=== PATIENT | female | born 1990 | race Caucasian/White ===

== ENCOUNTER 2025-01-29 06:00 | Inpatient (IN) | payer OTHER, SELFPAY ==
[2025-01-29] VITALS (26 sets, daily range): BP systolic 109–143; BP diastolic 63–82; PULSE 77–99; RESP 16–20; TEMP 36.3–36.9; O2SAT 94–98; BMI 26.0
--- NOTE | 2025-01-29 06:34 | PM.OBHPLI ---
OB - H&P: HPI Labor/Induction History of Present Illness Time Seen by Provider: 06:20 Date Seen: 01/29/25 Chief Complaint: The patient is a 34 year old 2 para 1 at 40 6/7 weeks gestation by LMP c/w 1st trimester US, who presents for induction due to postdates Chief complaint: IOL : 2 Para: 1 Date of last menstrual period: 04/18/24 Estimated date of delivery: 01/23/25 Gestational age based on last menstrual period: 40 Indications for induction: other (postdates) Narrative: Marielena Oconnor is a 34 year old 2 para 1 at 40 6/7 weeks gestation by LMP c/w 1st trimester US, who presents for induction due to postdates. She reports some occasional cramping the last couple days, no regular contractions. No LOF. No headaches, no vision changes. no reccent illness. +FM. No concerns. overall without complications except vaginal bleeding 07/11/24, given rhogam. History of Present Dating criteria: based on LMP care: good care (initial care through [facility], transfered [facility] at 31wks) Ultrasounds: other Abnormal ultrasound findings: US 06/25/24 Embryo 9w1d. cardiac activity. Early placcenta appears low lying/previa. Subchorionic bleed seen posterior/right gestational sac. 08/28/24 18 6/7 wks. Good FHT. Cervical length mildly shortened 2.6cm. adjaccent internal os is flat heterogeneous hypoechoic region. could be small hemorrhage vs small area uterine parenchyma. ALEXANDER 14.5. No previa. 09/11/24 normal anatomy EFW 57% Labs Blood type: AB (-) negative Rubella: immune RPR/VDLR: nonreactive GBS status: negative HBsAG: negative Meds Home Medications and Allergies Home Medications ?Medication ?Instructions ?Recorded ?Confirmed ?Type fluoxetine 20 mg capsule mg PO DAILY 03/16/24 03/16/24 History Held on 01/29/25. Instructions: Order Change ferrous sulfate 325 mg (65 mg 325 mg PO Q48H 01/29/25 01/29/25 History iron) tablet (Feosol) fluoxetine 10 mg capsule 10 mg PO DAILY 01/29/25 01/29/25 History vit no.95-ferrous 1 tab PO DAILY 01/29/25 01/29/25 History fumarate 28 mg-folic acid 800 mcg tablet () Allergies Allergy/AdvReac Type Severity Reaction Status Date / Time No Known Drug Allergies Allergy Verified 03/16/24 09:53 OB - H&P: Exam Physical Exam: Vital signs: Temp Pulse Resp BP Pulse Ox 97.9 F 91 16 118/76 97 01/29/25 06:11 01/29/25 06:11 01/29/25 06:11 01/29/25 06:11 01/29/25 06:12 Constitutional: Constitutional: no acute distress and cooperative Routine HEENT Exam: Head: Present normal inspection Eye: Present normal appearance ENT: Present mucous membranes moist Routine Respiratory Exam: Respiratory: Present CTA bilaterally Routine Cardiovascular Exam: Cardiovascular: RRR Routine Abdominal Exam: Comments: gravid consistent with dates Detailed Labor and Delivery Exam: Patient Gravid: yes Comments: 270/-2 on 01/27/25 today not feeling contractions. monitor with contractions q2-8 Fetus (Single): Heart Rate Baseline: 150 Monitor Accelerations: Present Monitor Decelerations: Variable Skilled Nursing Variability: Moderate (6-25) Detailed Lower Extremity Exam: Comments: no ankle edema Routine Psychiatric Exam: Present normal affect and good judgment OB - Problem Based A/P Additional Plan (1) Term : Status: Acute Plan discussed induction due to postdates in clinic. risks vs benefits and variability reviewed. all ?'s answered. Plan again reviewed today. Pt and without questions. plan start pitocin per protocol. GBS negative. Delivery/Labor/Induction Plan Plan: induction Induction method: per pitocin protocol
[2025-01-29 07:43] LABS: Hematocrit* 41.1 % (33.0-51.0); Hemoglobin* 13.9 gm/dL (12.0-16.0); Immature Granulocytes Pct Auto 0.5 %; Lymphocytes Absolute Auto 2.30 K/uL (0.90-2.90); Mean Corpuscular HGB Conc 34 gm/dL (32-36); Mean Corpuscular Hemoglobin 31 pg (26-34); Mean Corpuscular Volume 92 fL (80-100); RDW Coefficient of Variation % 12.8 % (11.5-15.5); Red Blood Count* 4.47 m/uL (4.00-5.20); White Blood Count* 11.30 K/uL (4.50-11.00)
[2025-01-29 07:53] LABS: Immature Granulocytes Abs Auto 0.10 K/uL (0.00-0.30)
[2025-01-29 07:54] LABS: Slide Review Reflex No
[2025-01-29] MEDS: OXYTOCIN 30 unit/500 ML in NS 30 UNIT/500 ML BAG IVPB (07:55)
[2025-01-29] MEDS: LACTATED RINGERS 1000 ML 1,000 ML 125 ML IV (07:55)
--- NOTE | 2025-01-29 13:23 | P.OBPN_ITS ---
Subjective Time Seen by Provider: 01:20 Date Seen: 01/29/25 Narrative: pt on pitocin and reports contractions seem to be increasing in intensity, rates 4/10, still speaking through them. Notes she felt little increased wetness but not like when water broke last . had little bloody mucous with voiding just now. Objective Vital Signs: Last Vital Signs Temp 97.9 F 01/29/25 12:00 Pulse 82 01/29/25 12:45 Resp 16 01/29/25 06:11 BP 118/75 01/29/25 12:45 Pulse Ox 94 01/29/25 11:00 Pelvic Exam Dilation (cm): 3.5 Effacement (%): 75 Station: -1 Comments: AROM with clear fluid Contractions Monitor mode: External Contraction Frequency: q2min Contraction pattern: Regular Assessment Assessment: induction ongoing Station: -1 Amniotic Membrane Status: AROM Heart Rate Baseline: 140 Deicer Element Winder Machine Variability: Moderate (6-25) Monitor Accelerations: Present Monitor Decelerations: Variable Plan Plan: Induction for postdates ongoing -on pitocin -discussed AROM and pt consented and AROM performed without difficulty. -all ?'s answered
[2025-01-29] MEDS: LIDOCAINE 1 % PF 30 ML INJECTION (15:18)
[2025-01-29] MEDS: miSOPROStoL 800 MCG/4 TABLET PR (15:30)
[2025-01-29] MEDS: LOPERAMIDE HCL 2 MG CAPSULE 4 MG PO (15:36)
[2025-01-29] MEDS: CARBOPROST TROMETHAMINE 250 MCG/ML INJ IM (15:36)
[2025-01-29] MEDS: TRANEXAMIC ACID 100 MG/ML INJ 1000 MG IV (15:42)
--- NOTE | 2025-01-29 15:56 | W.PM.OBVAGDE ---
OB Procedure Vag Delivery Mother Details Mother Details: The patient is a 34 year-old, 2, Para 1, admitted on 01/29/25 at Days gestation. Admission Date: 01/29/25 Additional Details Amniotic Membrane Status: AROM (clear fluid) Amniotic Membrane Rupture Date: 01/29/25 Amniotic Membrane Rupture Time: 13:16 Amniotic Membrane Fluid Description: Clear Analgesia/Anesthesia Type: None (topical lidocaine to perineum and vulva just before and post for uterine investigation due to bleeding) Waterbirth: No Pitcoin: Yes Intrapartal Events: Labor Induction Induction Method: per pitocin protocol and AROM Labor Onset: 14:15 Complete: 15:08 Pushin:06 (spontaneous pushing) Heart: heart tones during second stage were cat 2. Stage 2 was very short and was imminent. Delivery Details Delivery Date: 01/29/25 Delivery Time: 15:15 Route of delivery: Infant Gender: Male Infant Viability: Alive; Heart Rate Present Position at Delivery: OA Delivery Details: Patient was admitted for?IOL for post dates?and progressed quickly after 5 cm. she had planned an epidural, but did not have time for placement before baby was born. AROM noted at?1316?with clear fluid. Patient was complete at?1508?and?had began spontaneously pushing?at? 1506. of?a viable?male at?1515?in OA. Vertex?delivered?OA. One nuchal cord that was loose and easily slipped.?With first push after the head was delivered anterior shoulder did not release. Cesar was ordered and baby did deliver with the next push.?Infant?passed to?mothers?abdomen and was stimulated and suctioned with the bulb. Tone began to improved but no cry stimulated yet at 30 sec so cord was clamped and cut and baby was taken to the warmer. Loud cry heard very shortly after being taken from his mother.. APGARS were?8?at one minute and?8?at five?minutes?respectively. Placent noted to be irregularly shaped with off center cord insertion. cotyledons did lay approximately together, but intactness was not obvious. 3 vessel?cord delivered spontaneously at?1521. Fundus firm. 1st midline introitus?identified?and repaired in typical fashion. Amidst the repair, intermittent gushing of blood noted. Vaginal and cervical sweeps were repeatedly expelling clots. Cytotec given rectally. with continued issues, Dr Esqueda stepped in to do a uterine sweep. Please see her note. QBL?[id number]?cc. Mother and baby stable; mother plans to breastfeed. Infant weight pending.? 1 Minute Interval Total Score: 8 5 Minute Interval Total Score: 8 Additional Details Shoulder Dystocia: No Placenta Delivery Time: 15:21 Placental Delivery Description: Spontaneous Delivery repair: Vicryl Procedure Done: Global Laceration: Perineal - 1st Degree Episiotomy Description: None Blood Loss Measurement Type: QBL Bakri Used: No Sponge/Need Count Correct: Yes Cord Vessel Description: 3 Vessels, Loose and Reduced Event Summary Status: Mother and infant were stable after delivery. Disposition: floor
[2025-01-29 16:04] LABS: Hematocrit* 40.0 % (33.0-51.0); Hemoglobin* 13.5 gm/dL (12.0-16.0); Immature Granulocytes Abs Auto 0.10 K/uL (0.00-0.30); Immature Granulocytes Pct Auto 0.6 %; Mean Corpuscular HGB Conc 34 gm/dL (32-36); Mean Corpuscular Hemoglobin 31 pg (26-34); Mean Corpuscular Volume 92 fL (80-100); RDW Coefficient of Variation % 12.5 % (11.5-15.5); Red Blood Count* 4.35 m/uL (4.00-5.20); White Blood Count* 16.48 K/uL (4.50-11.00)
[2025-01-29 16:06] LABS: Lymphocytes Absolute Auto 2.00 K/uL (0.90-2.90); Slide Review Reflex No
--- NOTE | 2025-01-29 16:32 | PM.EN ---
Chart Event Note Time Seen by Provider: 15:16 Date Seen: 01/29/25 Chart Event Note: I was in clinic and notified at 2:59pm by RN that pt was 5cm and suddenly very uncomfortable. She requested epidural. Then at 3:02pm RN messaged that she was 8cm. Pitocin was turned off and anesthesia was on their way for epidural. I rushed out of clinic at 3:05pm and arrived around 3:16 and baby had delivered and was on mom's chest. User Experience Architect Jorge was present at bedside managing placenta. See her note for details. Per report, delayed cord clamping was performed for 30sec and when I arrived staff was assessing infant and taking him to warmer as he did not have spontaneous cry. Jorge continued to manage pt and I went to warmer with . see note for details. After was determined to be stable and improving, I returned to pts bedside where Joreg was repairing the 1st degree tear. Jorge noticed some persistent oozing and then clots. see her note for details. Pitocin had been started immediately after delivery and was already running. Fundal massage had been performed and uterus felt firm per RN. There were persistent clots with massage. I then placed cytotec 800mcg rectally. Pt continued to have bleeding and clots with fundal massage and Hemabate was given. Methergine was not given as mom's most recent BP had been 142/81. RN was instructed to start a 2nd IV. TXA was ordered. RN notified Dr Noriega to stay on unit in case needed. I put on sterile gloves and discussed with patient that I was going to do bimanual uterine clot evacuation to evaluate for retained placenta/clots. This was performed and 2 small placenta pieces were removed. I then repeated bimanual clot evacuation 2 more times for total of 3 times. The first two had small pieces of placenta removed, the last one had small amount of clots. Fundal uterus was very firm with mild distal uterine atony and this was massaged. As I was doing the bimanual clot evacuation, we had the RN's call Dr Noriega to come to bedside to evaluate with bedside US. Dr Noriega came to bedside and did bedside US. See Dr Noriega's note for details. In brief, Dr Noriega did bedside US that was reassuring and no evidence significant placenta or clot. Bladder was noted to be full of urine and so RN performed bedside straight cath. Dr Noriega repeated bedside US after urinary cath and no concerning findings noted. During this time, bleeding had decreased as well with no significant recurrent bleeding at that point. CBC was obtained at time 2nd IV was placed. QBL 1175. Plan was to monitor pts bleeding. Discussed with pt and plan and discussed what had transpired and potential future interventions if bleeding recurred/persisted.
[2025-01-29] MEDS: CEFAZOLIN 2 GM INJ IVP (18:33)
[2025-01-30 00:57] VITALS: BP 116/76; PULSE 96; RESP 16; TEMP 37.1; O2SAT 98
[2025-01-30 04:26] VITALS: BP 104/65; PULSE 91; RESP 16; TEMP 36.9; O2SAT 98
[2025-01-30 06:24] LABS: Hemoglobin* 11.6 gm/dL (12.0-16.0)
[2025-01-30 08:13] VITALS: BP 108/65; PULSE 97; RESP 18; TEMP 36.8; O2SAT 95
[2025-01-30] MEDS: DOCUSATE SODIUM 100 MG CAPSULE PO (10:23)
[2025-01-30 11:42] VITALS: BP 110/74; PULSE 82; RESP 18; TEMP 36.6; O2SAT 95
--- NOTE | 2025-01-30 16:10 | PM.OBDSVD1 ---
DS: Providers Provider Time Seen by Provider: 07:30 Date Seen: 01/30/25 Date of admission: 01/29/25 06:00 Primary care physician: Keeley Esqueda DO Admitting Clinician: Keeley Esqueda DO Consults: Dr Noriega OB Attending Physician on discharge: Keeley Esqueda DO Date of Discharge: 01/30/25 DS: Diagnosis Discharge Diagnosis (1) Precipitous delivery: Status: Acute Problem details: Went from 5cm to baby in less then 40min (2) (normal spontaneous vaginal delivery): Status: Acute (3) PPH ( hemorrhage): Status: Acute Problem details: recieved pitocin, cytotec, hemabate, TXA. Bimanual uterine evacuation. Bedside US reasurring. Ancef given afterwards. No significant bleeding since. Exam Const: Vital Signs, click to edit/add: Vital Signs - 24 hr 01/29/25 16:14 01/29/25 16:14 01/29/25 16:14 Temperature Pulse Rate 86 Pulse Rate [Pulse Oximeter] Respiratory Rate 18 Blood Pressure 137/82 Blood Pressure [Le ft Arm] Pulse Oximetry Oxygen Delivery Me thod 01/29/25 16:38 01/29/25 16:38 01/29/25 16:38 Temperature Pulse Rate 86 Pulse Rate [Pulse Oximeter] Respiratory Rate 18 Blood Pressure 123/69 Blood Pressure [Le ft Arm] Pulse Oximetry Oxygen Delivery Me thod 01/29/25 16:44 01/29/25 16:44 01/29/25 16:44 Temperature Pulse Rate 88 Pulse Rate [Pulse Oximeter] Respiratory Rate 20 Blood Pressure 127/76 Blood Pressure [Le ft Arm] Pulse Oximetry Oxygen Delivery Me thod 01/29/25 16:59 01/29/25 16:59 01/29/25 16:59 Temperature Pulse Rate 82 Pulse Rate [Pulse Oximeter] Respiratory Rate 18 Blood Pressure 126/70 Blood Pressure [Le ft Arm] Pulse Oximetry Oxygen Delivery Me thod 01/29/25 17:14 01/29/25 17:14 01/29/25 17:14 Temperature Pulse Rate 90 Pulse Rate [Pulse Oximeter] Respiratory Rate 19 Blood Pressure 125/69 Blood Pressure [Le ft Arm] Pulse Oximetry Oxygen Delivery Me thod 01/29/25 17:29 01/29/25 17:29 01/29/25 17:29 Temperature Pulse Rate 99 Pulse Rate [Pulse Oximeter] Respiratory Rate 19 Blood Pressure 112/63 Blood Pressure [Le ft Arm] Pulse Oximetry Oxygen Delivery Me thod 01/29/25 17:44 01/29/25 17:44 01/29/25 17:44 Temperature Pulse Rate 79 Pulse Rate [Pulse Oximeter] Respiratory Rate 19 Blood Pressure 124/76 Blood Pressure [Le ft Arm] Pulse Oximetry Oxygen Delivery Me thod 01/29/25 17:59 01/29/25 17:59 01/29/25 17:59 Temperature 98.1 F Pulse Rate 88 Pulse Rate [Pulse Oximeter] Respiratory Rate 19 Blood Pressure 115/78 Blood Pressure [Le ft Arm] Pulse Oximetry Oxygen Delivery Me thod 01/29/25 20:46 01/30/25 00:57 01/30/25 04:26 Temperature 98.5 F 98.7 F 98.5 F Pulse Rate Pulse Rate [Pulse Oximeter] 94 96 91 Respiratory Rate 18 16 16 Blood Pressure Blood Pressure [Le ft Arm] 116/78 116/76 104/65 Pulse Oximetry 98 98 98 Oxygen Delivery Me thod Room Air Room Air Room Air 01/30/25 08:13 01/30/25 11:42 Temperature 98.2 F 97.9 F Pulse Rate Pulse Rate [Pulse Oximeter] 97 82 Respiratory Rate 18 18 Blood Pressure Blood Pressure [Le ft Arm] 108/65 110/74 Pulse Oximetry 95 95 Oxygen Delivery Me thod Room Air Room Air Common normals: no apparent distress General appearance: cooperative and comfortable : Uterus: U/1 Lochia: small OB - DS: Summary Hospital Course Hospital Course: The patient is a 34 year old G 2 P 1 at 40 6/7 weeks gestation that was admitted to the Center on 01/29/25 for induction. She was started on pitocin and later underwent AROM. She had a precipitous vaginal delivery complicated by PPH, see notes for details. In brief reccieved uterotonics and underwent bedside bimanual uterine clot evacuation. Bedside US afterwards was reassuring. no significant bleeding since. She delivered a viable male . She is breast feeding. the patient has done well. Ambulating without difficulty. No lightheadedness. Voiding. Peripartum Data Infant delivery method: Vaginal Laceration description: Perineal - 1st Degree [place] Infant Gender: Male Status at Discharge Functional status at discharge: independent ambulation Overall status at discharge: patient is back to baseline Time Spent with Patient Time attestation: Total time spent providing and/or coordinating discharge services: Discharge Plan Discharge Disposition: Home, Self-Care Date of Admission: 01/29/25 06:00 Primary Care Provider: Keeley Esqueda Condition: Stable Anticipated Discharge Date/Time: 01/30/25 17:30 Discharge Medications: New cholecalciferol (vitamin D3) [Vitamin D3] 125 mcg (5,000 unit) tablet 125 mcg PO DAILY Qty: 90 3RF Rx Instructions: take as long as Continued PNV no.95-ferrous fumarate-FA [] 28 mg iron- 800 mcg tablet 1 tab PO DAILY fluoxetine 10 mg capsule 10 mg PO DAILY Discontinued fluoxetine 20 mg capsule PO DAILY ferrous sulfate [Feosol] 325 mg (65 mg iron) tablet 325 mg PO Q48H Discharge Orders: Discharge Order (Routine); Ordered 01/30/25 Ordered By: Keeley Esqueda Patient Education: OB Vaginal/Breast Feeding Activity Detail: Pelvic rest x 6 wks Discharge Diet: Regular Follow Up Appointments: Keeley Esqueda DO [Primary Care Provider, [facility]] Forms: MyHealth Info Instructions Labs Labs Laboratory Tests 01/30/25 01/29/25 01/29/25 Range/Units 06:02 15:52 07:30 WBC 16.48 H 11.30 H (4.50-11.00) K/uL RBC 4.35 4.47 (4.00-5.20) m/uL Hgb 11.6 L 13.5 13.9 (12.0-16.0) gm/dL Hct 40.0 41.1 (33.0-51.0) % MCV 92 92 (80-100) fL MCH 31 31 (26-34) pg MCHC 34 34 (32-36) gm/dL RDW Coeff of Alyson 12.5 12.8 (11.5-15.5) % Plt Count 248 238 (140-440) K/uL Neut % (Auto) 81.4 H 71.3 (42.0-72.0) % Lymph % (Auto) 12.3 L 20.4 (20-44) % Mclean % (Auto) 5.4 6.7 (0.0-11.0) % Eos % (Auto) 0.1 0.9 (0.0-7.0) % Baso % (Auto) 0.2 0.2 (0.0-3.0) % Neut # (Auto) 13.40 H 8.10 H (1.7-7.0) K/uL Lymph # (Auto) 2.00 2.30 (0.90-2.90) K/uL Mclean # (Auto) 0.90 0.80 (0.00-0.90) K/UL Eos # (Auto) 0.00 0.10 (0.00-0.50) K/uL Baso # (Auto) 0.00 0.00 (0.00-0.30) K/uL Abs Immat Gran (auto) 0.10 0.10 (0.00-0.30) K/uL Imm/Tot Granulo (auto) 0.6 0.5 % Syphilis IgG Antibody (NonReactive) Blood Type AB Negative Antibody Screen POSITIVE Antibody Identification No Antibodies Found by ARC Screen 01/29/25 Range/Units 06:02 WBC (4.50-11.00) K/uL RBC (4.00-5.20) m/uL Hgb (12.0-16.0) gm/dL Hct (33.0-51.0) % MCV (80-100) fL MCH (26-34) pg MCHC (32-36) gm/dL RDW Coeff of Alyson (11.5-15.5) % Plt Count (140-440) K/uL Neut % (Auto) (42.0-72.0) % Lymph % (Auto) (20-44) % Mclean % (Auto) (0.0-11.0) % Eos % (Auto) (0.0-7.0) % Baso % (Auto) (0.0-3.0) % Neut # (Auto) (1.7-7.0) K/uL Lymph # (Auto) (0.90-2.90) K/uL Mclean # (Auto) (0.00-0.90) K/UL Eos # (Auto) (0.00-0.50) K/uL Baso # (Auto) (0.00-0.30) K/uL Abs Immat Gran (auto) (0.00-0.30) K/uL Imm/Tot Granulo (auto) % Syphilis IgG Antibody Non-Reactive (NonReactive) Blood Type Antibody Screen Antibody Identification Screen Negative
[2025-01-30 18:00] VITALS: BP 112/74; PULSE 89; RESP 18; TEMP 36.6; O2SAT 96
[2025-01-30 20:03] VITALS: BP 121/77; PULSE 84; RESP 16; TEMP 36.8; O2SAT 98
== END 2025-01-30 21:47 | disposition home or self-care (01) | DRG 806 ==
PROVIDERS: Midwife; Admitting Provider Family Medicine; PCP Family Medicine; Visit Provider Family Medicine
DX: O48.0 Post-term pregnancy (principal); O72.0 Third-stage hemorrhage; Z37.0 Single live birth; O70.0 First degree perineal laceration during delivery; O69.81X0 Labor and delivery complicated by cord around neck, without compression, not applicable or unspecified; O62.3 Precipitate labor; Z3A.40 40 weeks gestation of pregnancy
CPT/HCPCS: 36415; 76815; 85018; 85025; 85461; 86780; 86850; 86870; 86900; 86901; G0463; A9270; J0690; J2003; J2590; J2791; J7120